=== PATIENT | female | born 1950 | race Hispanic/Latino ===

== ENCOUNTER 2022-04-28 12:30 | Outpatient (CLI) | payer MEDICARE, BC | END 2022-04-28 12:31 | disposition home or self-care (01) | LOC: BICMAMMO 12:30 | PROVIDERS: ATTEND Family Medicine | DX: Z12.31 Encounter for screening mammogram for malignant neoplasm of breast (principal) | CPT/HCPCS: 77063; 77067 ==

== ENCOUNTER 2023-08-18 06:55 | Outpatient (CLI) | payer MEDICARE, BC | END 2023-08-18 06:56 | disposition home or self-care (01) | LOC: BICULT 06:55 | PROVIDERS: ATTEND Family Medicine | DX: R74.8 Abnormal levels of other serum enzymes (principal) | CPT/HCPCS: 76705 ==

== ENCOUNTER 2023-09-12 12:01 | Outpatient (CLI) | payer MEDICARE, BC | END 2023-09-12 12:02 | disposition home or self-care (01) | LOC: BICMAMMO 12:01 | PROVIDERS: ATTEND Family Medicine | DX: Z12.31 Encounter for screening mammogram for malignant neoplasm of breast (principal) | CPT/HCPCS: 77063; 77067 ==